=== PATIENT | male | born 1965 | race Caucasian/White ===

== ENCOUNTER → 2019-04-30 | Outpatient (CLI) | payer MEDICARE | LOC: US 11:02 | PROVIDERS: ATTEND Internal Medicine | DX: I82.5Z1 Chronic embolism and thrombosis of unspecified deep veins of right distal lower extremity (principal); M79.661 Pain in right lower leg | CPT/HCPCS: 93971 ==

== ENCOUNTER 2019-06-23 11:55 | Outpatient (RCR) | payer MEDICARE ==
[~2019-06-23 11:55] MED LIST: FLUOCINONIDE 0.05% 1 EA/15 GM TUBE ONE
[2019-06-23] MEDS ORDERED: FLUOCINONIDE 0.05% 1 EA/15 GM TUBE ONE (15:04)
== END 2019-07-06 ==
LOC: WCC 11:55
PROVIDERS: ATTEND Family Medicine Adult Medicine
DX: I83.11 Varicose veins of right lower extremity with inflammation (principal); I83.12 Varicose veins of left lower extremity with inflammation; R60.0 Localized edema; I63.9 Cerebral infarction, unspecified; I87.2 Venous insufficiency (chronic) (peripheral)

== ENCOUNTER → 2019-06-30 | Outpatient (CLI) | payer MEDICARE | LOC: RAD 09:20 | PROVIDERS: ATTEND Family Medicine Adult Medicine | DX: I82.411 Acute embolism and thrombosis of right femoral vein (principal); I87.2 Venous insufficiency (chronic) (peripheral) | CPT/HCPCS: 93970 ==

== ENCOUNTER 2019-07-21 10:43 | Outpatient (RCR) | payer MEDICARE ==
[~2019-07-21 10:43] MED LIST changes: +MINERAL OIL/PETROLAT/GLYCERI 6OZ BTL ONE
[2019-07-21] MEDS ORDERED: MINERAL OIL/PETROLAT/GLYCERI 6OZ BTL ONE (16:16)
== END 2019-08-06 ==
LOC: WCC 10:43
PROVIDERS: ATTEND Family Medicine Adult Medicine
DX: D68.2 Hereditary deficiency of other clotting factors (principal); D89.89 Other specified disorders involving the immune mechanism, not elsewhere classified; I83.12 Varicose veins of left lower extremity with inflammation; I83.11 Varicose veins of right lower extremity with inflammation; I87.2 Venous insufficiency (chronic) (peripheral); R60.0 Localized edema; I63.9 Cerebral infarction, unspecified; L40.9 Psoriasis, unspecified